=== PATIENT | female | born 1955 | race Caucasian/White ===

== ENCOUNTER → 2018-12-23 | Outpatient (CLI) | payer OTHER ==
[~2018-12-23] MED LIST: OMEP20TA62 PO
[2018-12-23 15:29] LABS: BASOPHILS # (AUTO) 0.03 x10^3/uL (0-0.1); BASOPHILS % (AUTO) 0 % (0-1); EOSINOPHILS # (AUTO) 0.06 x10^3/uL (0-0.4); EOSINOPHILS % (AUTO) 1 % (1-7); LYMPHOCYTES # (AUTO) 0.87 x10^3/uL (1-3.4); LYMPHOCYTES % (AUTO) 8 % (22-44); MD NO; MEAN CORPUSCULAR HEMOGLOBIN 28.5 pg (27.0-34.8); MEAN CORPUSCULAR HGB CONC 32.4 g/dL (32.4-35.8); MEAN CORPUSCULAR VOLUME 88.1 fL (80-100); MONOCYTES # (AUTO) 0.81 x10^3/uL (0.2-0.8); MONOCYTES % (AUTO) 7 % (2-9); NEUTROPHILS # (AUTO) 9.38 x10^3/uL (1.8-6.8); NEUTROPHILS % (AUTO) 84 % (42-75); PLATELET COUNT 664 x10^3/uL (130-400); RED BLOOD COUNT 5.05 x10^6/uL (3.82-5.3); RED CELL DISTRIBUTION WIDTH 13.8 % (9.6-15.2)
[2018-12-23 15:33] LABS: INTERNATIONAL NORMALIZED RATIO 0.94 (0.93-1.1); PROTHROMBIN TIME 9.9 Seconds (9.6-11.5)
[2018-12-23 15:34] LABS: ALANINE AMINOTRANSFERASE 26 U/L (12-78); ALBUMIN 2.4 g/dL (3.4-5.0); ANION GAP 5 mmol/L (5-15); CALCIUM 8.4 mg/dL (8.5-10.1); CHLORIDE 101 mmol/L (98-107); CREATININE 0.83 mg/dL (0.55-1.02)
[2018-12-23 15:36] LABS: ALKALINE PHOSPHATASE 50 U/L (45-117); BILIRUBIN,TOTAL 0.2 mg/dL (0.2-1.0); TOTAL PROTEIN 6.4 g/dL (6.4-8.2)
== END | disposition home or self-care (01) ==
LOC: STAR 14:21
PROVIDERS: ATTEND Specialist
DX: Z01.818 Encounter for other preprocedural examination (principal); N95.0 Postmenopausal bleeding; J90 Pleural effusion, not elsewhere classified; R00.0 Tachycardia, unspecified
CPT/HCPCS: 36415; 71046; 80053; 85025; 85610; 85730; 86304; 93005

== ENCOUNTER → 2018-12-24 | Outpatient (CLI) | payer OTHER ==
[~2018-12-24] MED LIST changes: +LIDOCAINE-MPF 1%, 5ML ONE
== END | disposition home or self-care (01) ==
LOC: RAD 14:04
PROVIDERS: ATTEND Specialist
DX: R18.8 Other ascites (principal); R97.1 Elevated cancer antigen 125 [CA 125]
CPT/HCPCS: 49083; 88112; 88305; 88341; 88342

== ENCOUNTER 2018-12-29 08:00 | Inpatient (IN) | payer OTHER ==
[~2018-12-29] VITALS: Ht 170.2 cm; Wt 74.0 kg
[~2018-12-29 08:00] MED LIST changes: +BUPIVACAINE/PF 0.25% ONE; +EPINEPHRINE 1 MG/ML, 1ML ONE; +HEPARIN 1,000 UNITS/ML, 10ML ONE; -LIDOCAINE-MPF 1%, 5ML ONE
[2018-12-29] MEDS ORDERED: LACTATED RINGERS 1,000 ML IV SCH (08:24)
[2018-12-29] MEDS ORDERED: MIDAZOLAM 1 MG/ML, 2ML ONE (09:38)
[2018-12-29] MEDS ORDERED: FENTANYL PF 250 MCG/5ML ONE (09:38)
[2018-12-29] MEDS ORDERED: OxyconTIN ER 10 MG TAB.ER PO ONE (10:30)
[2018-12-29] MEDS ORDERED: ACETAMINOPHEN 500 MG TABLET PO ONE (10:30)
[2018-12-29] MEDS ORDERED: FAMOTIDINE 20 MG TABLET PO ONE (10:30)
[2018-12-29] MEDS ORDERED: GABAPENTIN 300 MG CAPSULE PO ONE (10:30)
[2018-12-29] MEDS ORDERED: DEXAMETHASONE 4 MG/ML, 1ML ONE ×2 (11:06)
[2018-12-29] MEDS ORDERED: CEFOTETAN PMX 2GM/50ML 50 ML ONE (11:06)
[2018-12-29] MEDS ORDERED: ONDANSETRON 2MG/ML, 2ML IV PRN (12:30)
[2018-12-29] MEDS ORDERED: PROMETHAZINE 25 MG/ML, 1ML IV PRN (12:30)
[2018-12-29] MEDS ORDERED: MEPERIDINE/PF 25MG/0.5ML IVPush PRN (12:30)
[2018-12-29] MEDS ORDERED: OXYcodone 5 MG/5 ML ORAL.SOL UDC PO PRN (12:30)
[2018-12-29] MEDS ORDERED: HYDROmorphone 2 MG/ML, 1ML IVPush PRN (12:30)
[2018-12-29] MEDS ORDERED: FENTANYL PF 100 MCG/2ML IV PRN (12:30)
[2018-12-29] MEDS ORDERED: LABETALOL 5MG/ML, 20ML IV PRN (12:30)
[2018-12-29] MEDS ORDERED: hydrALAzine 20 MG/ML, 1ML IV PRN (12:30)
[2018-12-29] MEDS ORDERED: ONDANSETRON 2MG/ML, 2ML ONE ×2 (13:29→14:16)
[2018-12-29] MEDS ORDERED: PROPOFOL 10 MG/ML, 20ML ONE (13:29)
[2018-12-29] MEDS ORDERED: ROCURONIUM 10MG/ML,5ML ONE (13:29)
[2018-12-29] MEDS ORDERED: FENTANYL PF 100 MCG/2ML ONE (13:34)
[2018-12-29] MEDS ORDERED: GLYCOPYRROLATE 0.2MG/1ML, 5ML ONE (13:39)
[2018-12-29] MEDS ORDERED: NEOSTIGMINE 1 MG/ML, 10ML ONE (13:39)
[2018-12-29] MEDS: KETOROLAC 30 MG/1 ML IM SCH ×2 (16:53→23:15)
[2018-12-29] MEDS: POTASSIUM CHLORIDE 20 MEQ in D5%-0.45% NACL 1,000 ML IV SCH (16:54)
[2018-12-29] MEDS ORDERED: ALBUMIN HUMAN 25% 100 ML IV SCH (17:00)
[2018-12-29 17:22] LABS: MEAN CORPUSCULAR HEMOGLOBIN 29.2 pg (27.0-34.8); MEAN CORPUSCULAR HGB CONC 33.9 g/dL (32.4-35.8); MEAN CORPUSCULAR VOLUME 86.2 fL (80-100); MEAN PLATELET VOLUME 7.6 fL (7.4-10.4); PLATELET COUNT 751 x10^3/uL (130-400); RED BLOOD COUNT 4.15 x10^6/uL (3.82-5.3); RED CELL DISTRIBUTION WIDTH 13.5 % (9.6-15.2)
[2018-12-29 17:42] LABS: MD YES
[2018-12-29 17:45] LABS: BAND#(MANUAL) 5.45 x10^3/uL; BANDS%(MANUAL) 27 % (0-7); METAMYELOCYTES% (MANUAL) 1 % (0-1); MONOS#(MANUAL) 1.41 x10^3/uL (0.3-2.7); MONOS% (MANUAL) 7 % (2-9); POLYCHROMASIA 2+; SEG#(MANUAL) 13.13 x10^3/uL (1.8-6.8); SEGS% (MANUAL) 65 % (42-75)
[2018-12-29 17:46] LABS: <PLATELET ESTIMATE> INCREASED; <PLT MORPHOLOGY> NORMAL PLT MORPH
[2018-12-29] MEDS: ALBUMIN HUMAN 5% 500 ML IV SCH (17:54)
[2018-12-29] MEDS ORDERED: SODIUM CHLORIDE 0.9% 1,000ML IVBOLUS ONE (19:00)
[2018-12-29 19:50] VITALS: BP 99/58
[2018-12-29] MEDS: FAMOTIDINE 20 MG/2 ML IV SCH (22:27)
[2018-12-29 23:53] VITALS: BP 92/56
[2018-12-30] VITALS (15 sets, daily range): BP systolic 80–89; BP diastolic 38–46
[2018-12-30] MEDS: POTASSIUM CHLORIDE 20 MEQ in D5%-0.45% NACL 1,000 ML IV SCH ×2 (03:02→14:48)
[2018-12-30] MEDS: ALBUMIN HUMAN 5% 500 ML IV SCH ×2 (04:33→14:51)
[2018-12-30] MEDS ORDERED: SODIUM CHLORIDE 0.9% 1,000ML IVBOLUS ONE (05:00)
[2018-12-30 05:47] LABS: BASOPHILS % (AUTO) 0 % (0-1); EOSINOPHILS % (AUTO) 0 % (1-7); LYMPHOCYTES # (AUTO) 0.51 x10^3/uL (1-3.4); LYMPHOCYTES % (AUTO) 5 % (22-44); MD NO; MEAN CORPUSCULAR HEMOGLOBIN 29.2 pg (27.0-34.8); MEAN CORPUSCULAR HGB CONC 33.7 g/dL (32.4-35.8); MEAN CORPUSCULAR VOLUME 86.8 fL (80-100); MEAN PLATELET VOLUME 7.7 fL (7.4-10.4); MONOCYTES # (AUTO) 0.96 x10^3/uL (0.2-0.8); MONOCYTES % (AUTO) 9 % (2-9); NEUTROPHILS # (AUTO) 9.55 x10^3/uL (1.8-6.8); NEUTROPHILS % (AUTO) 87 % (42-75); PLATELET COUNT 541 x10^3/uL (130-400); RED BLOOD COUNT 2.86 x10^6/uL (3.82-5.3); RED CELL DISTRIBUTION WIDTH 13.4 % (9.6-15.2)
[2018-12-30 05:56] LABS: ALBUMIN 1.5 g/dL (3.4-5.0); ANION GAP 4 mmol/L (5-15); CALCIUM 6.8 mg/dL (8.5-10.1); CHLORIDE 104 mmol/L (98-107)
[2018-12-30 05:57] LABS: CREATININE 0.79 mg/dL (0.55-1.02)
[2018-12-30] MEDS: KETOROLAC 30 MG/1 ML IM SCH ×5 (06:22→23:15)
[2018-12-30] MEDS: FAMOTIDINE 20 MG/2 ML IV SCH ×2 (09:51→23:09)
[2018-12-30] MEDS ORDERED: SODIUM CHLORIDE 0.9% 1,000ML IVBOLUS PRN (12:30)
[2018-12-30 14:36] LABS: MEAN CORPUSCULAR HEMOGLOBIN 28.9 pg (27.0-34.8); MEAN CORPUSCULAR HGB CONC 33.2 g/dL (32.4-35.8); MEAN CORPUSCULAR VOLUME 86.9 fL (80-100); MEAN PLATELET VOLUME 7.5 fL (7.4-10.4); PLATELET COUNT 537 x10^3/uL (130-400); RED CELL DISTRIBUTION WIDTH 13.6 % (9.6-15.2)
[2018-12-30 14:39] LABS: BASOPHILS # (AUTO) 0.01 x10^3/uL (0-0.1); BASOPHILS % (AUTO) 0 % (0-1); EOSINOPHILS # (AUTO) 0.01 x10^3/uL (0-0.4); EOSINOPHILS % (AUTO) 0 % (1-7); LYMPHOCYTES # (AUTO) 0.43 x10^3/uL (1-3.4); LYMPHOCYTES % (AUTO) 4 % (22-44); MD MORPH REVIEW ONLY; MONOCYTES # (AUTO) 0.77 x10^3/uL (0.2-0.8); MONOCYTES % (AUTO) 7 % (2-9); NEUTROPHILS # (AUTO) 9.68 x10^3/uL (1.8-6.8); NEUTROPHILS % (AUTO) 89 % (42-75)
[2018-12-30 15:05] LABS: <PLATELET ESTIMATE> INCREASED; OVALOCYTES 1+; TOXIC GRAN 1+
[2018-12-30 15:06] LABS: LARGE PLATELETS 1+
[2018-12-30] MEDS ORDERED: DIPHENHYDRAMINE 50 MG/ML, 1ML IVPush PRN (16:00)
[2018-12-30] MEDS ORDERED: ACETAMINOPHEN 325 MG TABLET PO PRN (16:00)
[2018-12-30] MEDS: D5%-0.45NACL+KCL 20MEQ 1,000 ML IV SCH (23:09)
[2018-12-30] MEDS: ENOXAPARIN 40 MG/0.4 ML SQ SCH (23:15)
[2018-12-31 03:13] VITALS: BP 87/44
[2018-12-31 05:49] LABS: BASOPHILS % (AUTO) 0 % (0-1); EOSINOPHILS # (AUTO) 0.19 x10^3/uL (0-0.4); EOSINOPHILS % (AUTO) 3 % (1-7); LYMPHOCYTES # (AUTO) 0.49 x10^3/uL (1-3.4); LYMPHOCYTES % (AUTO) 7 % (22-44); MD NO; MEAN CORPUSCULAR HEMOGLOBIN 29.8 pg (27.0-34.8); MEAN CORPUSCULAR VOLUME 87.5 fL (80-100); MEAN PLATELET VOLUME 7.6 fL (7.4-10.4); MONOCYTES # (AUTO) 0.69 x10^3/uL (0.2-0.8); MONOCYTES % (AUTO) 9 % (2-9); NEUTROPHILS # (AUTO) 6.13 x10^3/uL (1.8-6.8); NEUTROPHILS % (AUTO) 82 % (42-75); PLATELET COUNT 460 x10^3/uL (130-400); RED BLOOD COUNT 3.24 x10^6/uL (3.82-5.3); RED CELL DISTRIBUTION WIDTH 13.9 % (9.6-15.2)
[2018-12-31 05:56] LABS: ANION GAP 5 mmol/L (5-15); CALCIUM 7.1 mg/dL (8.5-10.1); CHLORIDE 109 mmol/L (98-107); CREATININE 0.68 mg/dL (0.55-1.02)
[2018-12-31 08:29] VITALS: BP 90/47
[2018-12-31] MEDS: FAMOTIDINE 20 MG/2 ML IV SCH (09:02)
[2018-12-31] MEDS: D5%-0.45NACL+KCL 20MEQ 1,000 ML IV SCH ×2 (09:02→16:50)
[2018-12-31] MEDS: ONDANSETRON 2MG/ML, 2ML IVPush PRN (09:02)
[2018-12-31] MEDS: OXYcodone/APAP 7.5/325MG TABLET PO PRN ×3 (11:44→23:47)
[2018-12-31] MEDS: KETOROLAC 30 MG/1 ML IM SCH ×3 (11:44→23:47)
[2018-12-31 12:48] VITALS: BP 95/55
[2018-12-31 20:00] VITALS: BP 90/49
[2018-12-31] MEDS: FAMOTIDINE 20 MG TABLET PO SCH (20:18)
[2018-12-31] MEDS: ENOXAPARIN 40 MG/0.4 ML SQ SCH (23:46)
[2019-01-01] MEDS: D5%-0.45NACL+KCL 20MEQ 1,000 ML IV SCH ×3 (02:00→13:35)
[2019-01-01 03:37] VITALS: BP 95/49
[2019-01-01 05:15] LABS: BASOPHILS # (AUTO) 0.01 x10^3/uL (0-0.1); BASOPHILS % (AUTO) 0 % (0-1); EOSINOPHILS % (AUTO) 6 % (1-7); LYMPHOCYTES # (AUTO) 0.52 x10^3/uL (1-3.4); LYMPHOCYTES % (AUTO) 9 % (22-44); MD NO; MEAN CORPUSCULAR HEMOGLOBIN 29.9 pg (27.0-34.8); MEAN PLATELET VOLUME 7.4 fL (7.4-10.4); MONOCYTES # (AUTO) 0.48 x10^3/uL (0.2-0.8); MONOCYTES % (AUTO) 9 % (2-9); NEUTROPHILS # (AUTO) 4.17 x10^3/uL (1.8-6.8); NEUTROPHILS % (AUTO) 76 % (42-75); PLATELET COUNT 563 x10^3/uL (130-400); RED BLOOD COUNT 3.53 x10^6/uL (3.82-5.3); RED CELL DISTRIBUTION WIDTH 14.2 % (9.6-15.2)
[2019-01-01] MEDS: OXYcodone/APAP 7.5/325MG TABLET PO PRN ×3 (06:01→20:16)
[2019-01-01] MEDS: KETOROLAC 30 MG/1 ML IM SCH ×3 (06:01→13:35)
[2019-01-01 07:42] VITALS: BP 95/55
[2019-01-01] MEDS: FAMOTIDINE 20 MG TABLET PO SCH ×2 (08:05→20:16)
[2019-01-01 13:48] VITALS: BP 101/64
[2019-01-01] MEDS ORDERED: LORazepam 1MG TABLET PO PRN (17:30)
[2019-01-01 19:17] VITALS: BP 103/65
[2019-01-02 00:26] VITALS: BP 110/57
[2019-01-02] MEDS: ENOXAPARIN 40 MG/0.4 ML SQ SCH (00:26)
[2019-01-02] MEDS: KETOROLAC 30 MG/1 ML IM SCH ×4 (00:26→17:54)
[2019-01-02] MEDS: D5%-0.45NACL+KCL 20MEQ 1,000 ML IV SCH ×4 (02:00→20:03)
[2019-01-02 07:10] VITALS: BP 112/56
[2019-01-02] MEDS: FAMOTIDINE 20 MG TABLET PO SCH ×2 (07:42→21:15)
[2019-01-02] MEDS: OXYcodone/APAP 7.5/325MG TABLET PO PRN ×3 (07:42→21:15)
[2019-01-02 12:25] VITALS: BP 93/56
[2019-01-02 19:40] VITALS: BP 103/54
[2019-01-02] MEDS: ONDANSETRON 2MG/ML, 2ML IVPush PRN (21:15)
[2019-01-03 01:17] VITALS: BP 99/58
[2019-01-03] MEDS: ENOXAPARIN 40 MG/0.4 ML SQ SCH (01:40)
[2019-01-03] MEDS: KETOROLAC 30 MG/1 ML IM SCH ×3 (05:41→11:39)
[2019-01-03 06:55] VITALS: BP 108/59
[2019-01-03] MEDS: FAMOTIDINE 20 MG TABLET PO SCH (07:59)
[2019-01-03] MEDS: OXYcodone/APAP 7.5/325MG TABLET PO PRN ×2 (08:01→14:18)
[2019-01-03] MEDS: D5%-0.45NACL+KCL 20MEQ 1,000 ML IV SCH (10:00)
[2019-01-03 13:47] VITALS: BP 106/55
[2019-01-03] MEDS ORDERED: ONDA4TAB13 PO (15:41)
[2019-01-03] MEDS ORDERED: OXYC-306 PO (15:41)
== END 2019-01-03 16:00 | disposition home or self-care (01) | DRG 737 ==
LOC: OUT 08:00 → ORIP 13:58 → 4NOR 15:30 → DCLOUNGE 01-03 15:42
PROVIDERS: ADMIT Specialist; ATTEND Specialist
PROC: 0UT90ZZ Resection of Uterus, Open Approach (ICD-10-PCS; 2018-12-29)
PROC: 0DBU0ZZ Excision of Omentum, Open Approach (ICD-10-PCS; 2018-12-29)
PROC: 0UT20ZZ Resection of Bilateral Ovaries, Open Approach (ICD-10-PCS; 2018-12-29)
PROC: 07BC0ZZ Excision of Pelvis Lymphatic, Open Approach (ICD-10-PCS; 2018-12-29)
PROC: 0DTJ0ZZ Resection of Appendix, Open Approach (ICD-10-PCS; 2018-12-29)
PROC: 0UT70ZZ Resection of Bilateral Fallopian Tubes, Open Approach (ICD-10-PCS; 2018-12-29)
PROC: 07BD0ZZ Excision of Aortic Lymphatic, Open Approach (ICD-10-PCS; 2018-12-29)
PROC: 30233N1 Transfusion of Nonautologous Red Blood Cells into Peripheral Vein, Percutaneous Approach (ICD-10-PCS; 2018-12-29)
PROC: 0W9G3ZZ Drainage of Peritoneal Cavity, Percutaneous Approach (ICD-10-PCS; 2018-12-29)
PROC: 0UJD4ZZ Inspection of Uterus and Cervix, Percutaneous Endoscopic Approach (ICD-10-PCS; principal; 2018-12-29 10:00)
DX: C56.2 Malignant neoplasm of left ovary (principal); E46 Unspecified protein-calorie malnutrition; R18.8 Other ascites; D64.9 Anemia, unspecified; I95.9 Hypotension, unspecified; G89.18 Other acute postprocedural pain; C57.01 Malignant neoplasm of right fallopian tube; C56.1 Malignant neoplasm of right ovary; N83.9 Noninflammatory disorder of ovary, fallopian tube and broad ligament, unspecified; R59.9 Enlarged lymph nodes, unspecified; C57.02 Malignant neoplasm of left fallopian tube; Z68.25 Body mass index [BMI] 25.0-25.9, adult; Z53.31 Laparoscopic surgical procedure converted to open procedure
CPT/HCPCS: 36415; J3490; 80048; 82040; 82570; 85025; 86850; 86900; 86923; 88304; 88305; 88307; 88331; 88341; 88342; G0378; J0171; J1100; J1644; J1650; J1885; J2250; J2270; J2405; J2704; J2710; J3010; J3480; P9045; C1765; J1200; J7030; J7120; P9016

== ENCOUNTER 2019-03-19 07:31 | Outpatient (CLI) | payer OTHER ==
[~2019-03-19] VITALS: Ht 170.2 cm; Wt 66.0 kg
[2019-03-19 08:00] VITALS: BP 130/72
== END 2019-03-19 23:59 | disposition home or self-care (01) ==
LOC: INFUSION 07:31
PROVIDERS: ATTEND Specialist
DX: Z51.11 Encounter for antineoplastic chemotherapy (principal); C56.2 Malignant neoplasm of left ovary
CPT/HCPCS: 36415; 36591; 82570; 84100; 84156; 96367; 96375; 96413; 96415; 96417; J1100; J1200; J2405; J3490; J7040; J7050; J9035; J9045; J9267